=== PATIENT | female | born 1960 | race Caucasian/White ===

== ENCOUNTER 2017-01-05 10:36 | Emergency (ER) | payer MEDICAID ==
[~2017-01-05] VITALS: Ht 170.2 cm; Wt 68.0 kg
[2017-01-05 10:39] VITALS: BP_SYST 141
[2017-01-05] MEDS ORDERED: LIDOCAINE/EPI 1% 1:100000 20 ML VIAL IJ ONE (11:15)
[2017-01-05 13:30] VITALS: BP_SYST 140
== END 2017-01-05 13:30 | disposition home or self-care (01) ==
LOC: SED 10:36
DX: Z48.02 Encounter for removal of sutures (principal); E11.9 Type 2 diabetes mellitus without complications; I10 Essential (primary) hypertension; F17.210 Nicotine dependence, cigarettes, uncomplicated
CPT/HCPCS: 99283